=== PATIENT | female | born 1990 | race Caucasian/White ===

== ENCOUNTER 2022-10-15 18:48 | Emergency (ER) | payer OTHER ==
[~2022-10-15] VITALS: Ht 165.1 cm; Wt 63.5 kg
[2022-10-15] MEDS ORDERED: CEPH500 PO (19:11)
== END 2022-10-15 19:19 | disposition home or self-care (01) ==
LOC: ER 18:48
DX: L03.012 Cellulitis of left finger (principal)
CPT/HCPCS: A9270

== ENCOUNTER 2024-05-14 03:51 | Emergency (ER) | payer OTHER ==
[~2024-05-14] VITALS: Ht 167.6 cm; Wt 70.3 kg
[~2024-05-14 03:51] MED LIST: CEPH500 PO
[2024-05-14] MEDS ORDERED: Methyl Salicylate/Menth/Camph 57 GM TUBE TOP ONE (06:40)
[2024-05-14] MEDS ORDERED: Acetaminophen 500 MG Tab PO ONE (06:40)
[2024-05-14] MEDS ORDERED: Ketorolac Tromethamine 30mg Vial IM ONE (06:40)
[2024-05-14] MEDS ORDERED: Methocarbamol 500 MG Tab PO ONE (06:40)
[2024-05-14] MEDS ORDERED: Robaxin750 MG PO ×2 (07:05→07:24)
[2024-05-14] MEDS ORDERED: ARIPIPRAZOLE2 M1 PO (07:08)
[2024-05-14] MEDS ORDERED: FAMO20 PO (07:09)
[2024-05-14 07:18] VITALS: BP 115/75
== END 2024-05-14 07:29 | disposition home or self-care (01) ==
LOC: ER 03:51
DX: S29.012A Strain of muscle and tendon of back wall of thorax, initial encounter (principal); K25.9 Gastric ulcer, unspecified as acute or chronic, without hemorrhage or perforation; F31.9 Bipolar disorder, unspecified; F17.210 Nicotine dependence, cigarettes, uncomplicated; X58.XXXA Exposure to other specified factors, initial encounter; Z79.899 Other long term (current) drug therapy; Z88.5 Allergy status to narcotic agent; Z91.048 Other nonmedicinal substance allergy status
CPT/HCPCS: 73030; 96372; 99283-25; A9270; J1885

== ENCOUNTER 2024-08-26 09:26 | Emergency (ER) | payer OTHER ==
[~2024-08-26] VITALS: Ht 165.1 cm; Wt 70.3 kg
[~2024-08-26 09:26] MED LIST changes: +ARIPIPRAZOLE2 M1 PO; +FAMO20 PO; +Robaxin750 MG PO
[2024-08-26 09:46] VITALS: BP 156/64
[2024-08-26 10:19] LABS: Source, Urine Clean Catch
[2024-08-26 10:31] LABS: Appearance, Urine Clear (Clear); Bilirubin, Urine Neg (Neg); Blood, Urine Neg (Neg); Color, Urine Yellow (P-Yellow); Glucose Qualitative, Urine Neg (Neg); Ketones, Urine Neg (Neg); Leukocyte Esterase, Urine 3+ (Neg); Nitrite, Urine Pos (Neg); Protein, Urine 2+ (Neg); Urobilinogen, Urine 1+ (Normal)
[2024-08-26 12:03] LABS: Bacteria Mod /hpf; Red Blood Cells, Urine 0-2 /hpf (0-2); Squamous Epithelial Cells Many /hpf (Few)
[2024-08-26] MEDS ORDERED: CEFD300 PO ×2 (12:09→12:13)
== END 2024-08-26 12:12 | disposition home or self-care (01) ==
LOC: ER 09:26
PROVIDERS: Physician Assistant
DX: S60.512A Abrasion of left hand, initial encounter (principal); N39.0 Urinary tract infection, site not specified; Z88.8 Allergy status to other drugs, medicaments and biological substances; Z88.5 Allergy status to narcotic agent; Z88.0 Allergy status to penicillin; Z91.040 Latex allergy status; Z79.899 Other long term (current) drug therapy; F17.210 Nicotine dependence, cigarettes, uncomplicated; X58.XXXA Exposure to other specified factors, initial encounter
CPT/HCPCS: 81001; 81025; 87077; 87086; 87186; 99283

== ENCOUNTER 2024-12-19 02:54 | Emergency (ER) | payer OTHER ==
[~2024-12-19] VITALS: Ht 167.6 cm; Wt 74.8 kg
[~2024-12-19 02:54] MED LIST changes: +CEFD300 PO
[2024-12-19 03:41] LABS: Source, Urine Clean Catch
[2024-12-19 03:48] LABS: Bilirubin, Urine Neg (Neg); Blood, Urine Neg (Neg); Glucose Qualitative, Urine Neg (Neg); Ketones, Urine Neg (Neg); Leukocyte Esterase, Urine 1+ (Neg); Nitrite, Urine Neg (Neg); Protein, Urine Neg (Neg); Urobilinogen, Urine NORM (Normal)
[2024-12-19 03:55] LABS: Appearance, Urine Clear (Clear); Color, Urine Yellow (P-Yellow)
[2024-12-19 03:56] LABS: Amorphous Light (0-Heavy); Bacteria Few /hpf; Red Blood Cells, Urine Not Seen /hpf (0-2); Squamous Epithelial Cells Few /hpf (Few)
[2024-12-19] MEDS ORDERED: Cephalexin Monohydrate 500 MG Cap PO ONE (04:10)
[2024-12-19] MEDS ORDERED: CEPH500 PO (04:12)
[2024-12-19] MEDS ORDERED: ONDA4ODT MM (04:14)
[2024-12-19 04:27] VITALS: BP 120/67
== END 2024-12-19 04:29 | disposition home or self-care (01) ==
LOC: ER 02:54
PROVIDERS: Student in an Organized Health Care Education/Training Program
DX: N30.00 Acute cystitis without hematuria (principal); F17.210 Nicotine dependence, cigarettes, uncomplicated; Z79.899 Other long term (current) drug therapy; Z88.5 Allergy status to narcotic agent; Z88.0 Allergy status to penicillin; Z91.040 Latex allergy status; Z88.8 Allergy status to other drugs, medicaments and biological substances; Z91.048 Other nonmedicinal substance allergy status
CPT/HCPCS: 81001; 81025; A9270

== ENCOUNTER 2024-12-27 22:33 | Emergency (ER) | payer OTHER ==
[~2024-12-27] VITALS: Ht 167.6 cm; Wt 74.8 kg
[~2024-12-27 22:33] MED LIST changes: +ONDA4ODT MM
[2024-12-27 22:45] VITALS: BP 169/90
[2024-12-27 23:14] LABS: Source, Urine Clean Catch
[2024-12-27] MEDS ORDERED: Azithromycin 250 MG Tab PO ONE (23:15)
[2024-12-27] MEDS ORDERED: CefTRIAXone 1000 MG Vial IM ONE (23:15)
[2024-12-27 23:18] LABS: Appearance, Urine Clear (Clear); Bilirubin, Urine Neg (Neg); Blood, Urine 1+ (Neg); Color, Urine Yellow (P-Yellow); Glucose Qualitative, Urine Neg (Neg); Ketones, Urine 1+ (Neg); Leukocyte Esterase, Urine 1+ (Neg); Nitrite, Urine Neg (Neg); Protein, Urine Neg (Neg); Urobilinogen, Urine NORM (Normal)
[2024-12-27 23:24] LABS: Bacteria Few /hpf; Red Blood Cells, Urine 0-2 /hpf (0-2); Squamous Epithelial Cells Mod /hpf (Few)
[2024-12-27] MEDS ORDERED: CefTRIAXone 500 MG Vial IM ONE (23:25)
== END 2024-12-27 23:58 | disposition left against medical advice (07) ==
LOC: ER 22:33
PROVIDERS: Student in an Organized Health Care Education/Training Program
DX: T78.40XA Allergy, unspecified, initial encounter (principal); Z20.2 Contact with and (suspected) exposure to infections with a predominantly sexual mode of transmission; F17.210 Nicotine dependence, cigarettes, uncomplicated; Z88.5 Allergy status to narcotic agent; Z88.0 Allergy status to penicillin; Z88.1 Allergy status to other antibiotic agents; Z88.8 Allergy status to other drugs, medicaments and biological substances; Z91.040 Latex allergy status; Z91.048 Other nonmedicinal substance allergy status; Z79.899 Other long term (current) drug therapy
CPT/HCPCS: 81001; 81025; A9270; J0696

== ENCOUNTER 2024-12-31 16:18 | Emergency (ER) | payer OTHER ==
[~2024-12-31] VITALS: Ht 167.6 cm; Wt 74.8 kg
[2024-12-31 16:52] VITALS: BP 143/91
[2024-12-31 17:21] LABS: Source, Urine Clean Catch
[2024-12-31 17:38] LABS: Appearance, Urine Clear (Clear); Bilirubin, Urine Neg (Neg); Blood, Urine Neg (Neg); Color, Urine Yellow (P-Yellow); Glucose Qualitative, Urine Neg (Neg); Ketones, Urine Neg (Neg); Leukocyte Esterase, Urine Neg (Neg); Nitrite, Urine Neg (Neg); Protein, Urine Neg (Neg); Urobilinogen, Urine NORM (Normal)
[2024-12-31 19:48] LABS: Chlamydia Trachomatis Urine NOT DETECTED (NOT DETECT); Neisseria Gonorrhoea Urine NOT DETECTED (NOT DETECT)
== END 2024-12-31 18:43 | disposition home or self-care (01) ==
LOC: ER 16:18
PROVIDERS: Student in an Organized Health Care Education/Training Program
DX: R10.9 Unspecified abdominal pain (principal); F17.210 Nicotine dependence, cigarettes, uncomplicated; Z79.899 Other long term (current) drug therapy; Z79.2 Long term (current) use of antibiotics; Z88.0 Allergy status to penicillin; Z88.5 Allergy status to narcotic agent; Z91.040 Latex allergy status; Z88.1 Allergy status to other antibiotic agents; Z88.8 Allergy status to other drugs, medicaments and biological substances
CPT/HCPCS: 76770; 81003; 87491; 87591; 99284-25

== ENCOUNTER 2025-01-22 05:12 | Emergency (ER) | payer OTHER ==
[~2025-01-22] VITALS: Ht 167.6 cm; Wt 74.8 kg
[2025-01-22 05:26] VITALS: BP 131/91
[2025-01-22] MEDS ORDERED: LAMOTRIGINE100 M1 PO ×2 (06:27→06:50)
[2025-01-22] MEDS ORDERED: ARIPIPRAZOLE2 M1 PO (06:50)
[2025-01-22] MEDS ORDERED: ARIPiprazole 10 MG Tab PO ONE (06:50)
[2025-01-22] MEDS ORDERED: LamoTRIgine 25 MG Tab PO ONE (06:50)
== END 2025-01-22 07:05 | disposition home or self-care (01) ==
LOC: ER 05:12
DX: Z76.0 Encounter for issue of repeat prescription (principal); F17.210 Nicotine dependence, cigarettes, uncomplicated; Z88.8 Allergy status to other drugs, medicaments and biological substances; Z88.5 Allergy status to narcotic agent; Z88.1 Allergy status to other antibiotic agents; Z79.899 Other long term (current) drug therapy
CPT/HCPCS: 99283; A9270

== ENCOUNTER 2025-01-22 16:05 | Emergency (ER) | payer OTHER ==
[~2025-01-22] VITALS: Ht 167.6 cm; Wt 72.6 kg
[~2025-01-22 16:05] MED LIST changes: +LAMOTRIGINE100 M1 PO
[2025-01-22 16:49] VITALS: BP 124/83
== END 2025-01-22 17:46 | disposition home or self-care (01) ==
LOC: ER 16:05
DX: F22 Delusional disorders (principal); F17.210 Nicotine dependence, cigarettes, uncomplicated; Z88.5 Allergy status to narcotic agent; Z88.0 Allergy status to penicillin; Z88.1 Allergy status to other antibiotic agents; Z88.8 Allergy status to other drugs, medicaments and biological substances; Z79.899 Other long term (current) drug therapy
CPT/HCPCS: 99282

== ENCOUNTER 2025-01-27 04:08 | Emergency (ER) | payer OTHER ==
[~2025-01-27] VITALS: Ht 167.6 cm; Wt 70.3 kg
[2025-01-27 04:15] VITALS: BP 151/96
[2025-01-27] MEDS ORDERED: LamoTRIgine 25 MG Tab PO ONE ×2 (04:50→05:20)
== END 2025-01-27 05:20 | disposition home or self-care (01) ==
LOC: ER 04:08
DX: R45.851 Suicidal ideations (principal); F32.A Depression, unspecified; F41.9 Anxiety disorder, unspecified; F17.210 Nicotine dependence, cigarettes, uncomplicated; Z91.148 Patient's other noncompliance with medication regimen for other reason; Z88.5 Allergy status to narcotic agent; Z88.1 Allergy status to other antibiotic agents; Z88.0 Allergy status to penicillin; Z91.040 Latex allergy status; Z88.8 Allergy status to other drugs, medicaments and biological substances; Z79.1 Long term (current) use of non-steroidal anti-inflammatories (NSAID); Z79.899 Other long term (current) drug therapy
CPT/HCPCS: 93005; 93010; 99284-25; A9270

== ENCOUNTER 2025-02-25 00:20 | Emergency (ER) | payer OTHER ==
[~2025-02-25] VITALS: Ht 167.6 cm; Wt 72.6 kg
[2025-02-25 00:44] VITALS: BP 140/90
[2025-02-25 03:27] LABS: Source, Urine Clean Catch
[2025-02-25] MEDS ORDERED: Clindamycin HCl 150 MG Cap PO ONE (03:35)
[2025-02-25] MEDS ORDERED: Diclofenac Sodium 100 GM TUBE TOP ONE (03:35)
[2025-02-25 03:37] LABS: Appearance, Urine Hazy (Clear); Bilirubin, Urine Neg (Neg); Blood, Urine Neg (Neg); Color, Urine Yellow (P-Yellow); Glucose Qualitative, Urine Neg (Neg); Ketones, Urine Neg (Neg); Leukocyte Esterase, Urine Neg (Neg); Nitrite, Urine Neg (Neg); Protein, Urine Neg (Neg); Urobilinogen, Urine NORM (Normal); pH, Urine 6.5 (5.0-8.0)
[2025-02-25] MEDS ORDERED: Voltaren100 GM TOP (03:38)
[2025-02-25] MEDS ORDERED: Cleocin HCl150 MG PO (03:38)
[2025-02-25 03:43] LABS: Red Blood Cells, Urine 0-2 /hpf (0-2)
[2025-02-25 03:44] LABS: Amorphous Mod (0-Heavy); Bacteria Few /hpf; Squamous Epithelial Cells Few /hpf (Few)
== END 2025-02-25 03:54 | disposition home or self-care (01) ==
LOC: ER 00:20
PROVIDERS: Emergency Medicine
DX: K04.7 Periapical abscess without sinus (principal); M43.6 Torticollis; R82.71 Bacteriuria; F17.210 Nicotine dependence, cigarettes, uncomplicated; L30.9 Dermatitis, unspecified; Z88.5 Allergy status to narcotic agent; Z88.0 Allergy status to penicillin; Z91.040 Latex allergy status; Z79.899 Other long term (current) drug therapy; Z88.8 Allergy status to other drugs, medicaments and biological substances; Z59.89 Other problems related to housing and economic circumstances
CPT/HCPCS: 81001; 87077; 87086; 87186; 99283; A9270

== ENCOUNTER 2025-03-06 01:09 | Emergency (ER) | payer OTHER ==
[~2025-03-06] VITALS: Ht 167.6 cm; Wt 70.3 kg
[~2025-03-06 01:09] MED LIST changes: +Cleocin HCl150 MG PO; +Voltaren100 GM TOP
[2025-03-06 01:43] LABS: BASOPHILS ABSOLUTE AUTO 0.03 K/mm3 (0.00-0.23); BASOPHILS PERCENT AUTO 0 % (0-2); EOSINOPHILS ABSOLUTE AUTO 0.08 K/mm3 (0.00-0.68); EOSINOPHILS PERCENT AUTO 1 % (0-6); Hematocrit 41.5 % (33.0-51.0); Hemoglobin 14.5 g/dL (11.5-16.0); IMMATURE GRAN ABSOLUTE AUTO 0.01 K/mm3 (0.00-0.10); IMMATURE GRAN PERCENT AUTO 0 % (0-1); LYMPHOCYTES ABSOLUTE AUTO 2.48 K/mm3 (0.84-5.20); LYMPHOCYTES PERCENT AUTO 37 % (21-46); MONOCYTES ABSOLUTE AUTO 0.37 K/mm3 (0.16-1.47); MONOCYTES PERCENT AUTO 6 % (4-13); Mean Corpuscular HGB 30.7 pg (26.0-34.0); Mean Corpuscular HGB Conc 34.9 g/dL (31.5-36.5); Mean Corpuscular Volume 88 fL (80-100); NEUTROPHILS ABSOLUTE AUTO 3.73 K/mm3 (1.96-9.15); NEUTROPHILS PERCENT AUTO 56 % (41-73); Platelet Count 180 K/mm3 (150-400); RDW Coefficient Variation 11.5 % (11.7-14.2); Red Blood Cell Count 4.72 M/mm3 (3.80-5.20)
[2025-03-06 02:02] LABS: Albumin, Blood 4.2 g/dL (3.4-5.0); Albumin/Globulin Ratio 1.3 (0.8-1.8); Bilirubin, Total 0.6 mg/dL (0.1-1.0); Bun/Creatinine Ratio 18.4 (12.0-20.0); Calcium, Blood 9.1 mg/dL (8.5-10.1); Creatinine, Blood 0.76 mg/dL (0.40-1.00); Globulin, Blood 3.3 g/dL (2.2-4.0); Potassium, Blood 3.4 mmol/L (3.5-5.5); Total Protein, Blood 7.5 g/dL (6.4-8.2)
[2025-03-06] MEDS ORDERED: Ciprofloxacin 500 MG Tab PO ONE (03:10)
[2025-03-06] MEDS ORDERED: Acetaminophen 500 MG Tab PO ONE (03:10)
[2025-03-06] MEDS ORDERED: CIPR500 PO ×2 (03:11→03:32)
[2025-03-06 03:30] VITALS: BP 124/83
== END 2025-03-06 03:30 | disposition home or self-care (01) ==
LOC: ER 01:09
PROVIDERS: Emergency Medicine
DX: N39.0 Urinary tract infection, site not specified (principal); Z88.0 Allergy status to penicillin; Z88.1 Allergy status to other antibiotic agents; Z91.040 Latex allergy status; Z79.899 Other long term (current) drug therapy; Z79.2 Long term (current) use of antibiotics; F17.210 Nicotine dependence, cigarettes, uncomplicated
CPT/HCPCS: 80053; 83690; 85025; 99284; A9270

== ENCOUNTER 2025-03-15 19:27 | Emergency (ER) | payer OTHER ==
[~2025-03-15] VITALS: Ht 167.6 cm; Wt 68.0 kg
[~2025-03-15 19:27] MED LIST changes: +CIPR500 PO
[2025-03-15 19:32] VITALS: BP 154/76
[2025-03-15] MEDS ORDERED: IBUP600 PO (20:31)
== END 2025-03-15 20:48 | disposition home or self-care (01) ==
LOC: ER 19:27
DX: S62.512A Displaced fracture of proximal phalanx of left thumb, initial encounter for closed fracture (principal); F17.210 Nicotine dependence, cigarettes, uncomplicated; Y04.0XXA Assault by unarmed brawl or fight, initial encounter; Z91.09 Other allergy status, other than to drugs and biological substances; Z88.0 Allergy status to penicillin; Z88.5 Allergy status to narcotic agent; Z88.1 Allergy status to other antibiotic agents; Z88.8 Allergy status to other drugs, medicaments and biological substances; Z91.040 Latex allergy status; Z79.899 Other long term (current) drug therapy
CPT/HCPCS: 29125; 73130; 99283-25

== ENCOUNTER 2025-03-28 18:14 | Emergency (ER) | payer OTHER ==
[~2025-03-28] VITALS: Ht 167.6 cm; Wt 68.0 kg
[~2025-03-28 18:14] MED LIST changes: +IBUP600 PO
[2025-03-28 18:33] VITALS: BP 135/96
[2025-03-28] MEDS ORDERED: NS 1,000 ML IV SCH (18:45)
[2025-03-28 18:58] LABS: BASOPHILS ABSOLUTE AUTO 0.03 K/mm3 (0.00-0.23); BASOPHILS PERCENT AUTO 1 % (0-2); EOSINOPHILS ABSOLUTE AUTO 0.04 K/mm3 (0.00-0.68); EOSINOPHILS PERCENT AUTO 1 % (0-6); Hematocrit 44.9 % (33.0-51.0); Hemoglobin 15.2 g/dL (11.5-16.0); IMMATURE GRAN ABSOLUTE AUTO 0.01 K/mm3 (0.00-0.10); IMMATURE GRAN PERCENT AUTO 0 % (0-1); LYMPHOCYTES ABSOLUTE AUTO 1.74 K/mm3 (0.84-5.20); LYMPHOCYTES PERCENT AUTO 31 % (21-46); MONOCYTES PERCENT AUTO 5 % (4-13); Mean Corpuscular HGB 30.7 pg (26.0-34.0); Mean Corpuscular HGB Conc 33.9 g/dL (31.5-36.5); Mean Corpuscular Volume 91 fL (80-100); Mean Platelet Volume 12.2 fL (9.1-12.4); NEUTROPHILS ABSOLUTE AUTO 3.57 K/mm3 (1.96-9.15); NEUTROPHILS PERCENT AUTO 63 % (41-73); Platelet Count 177 K/mm3 (150-400); RDW Coefficient Variation 11.7 % (11.7-14.2); RDW Standard Deviation 38.8 fL (35.1-46.3); Red Blood Cell Count 4.95 M/mm3 (3.80-5.20); White Blood Cell Count 5.69 K/mm3 (4.00-11.30)
[2025-03-28 19:28] LABS: Albumin, Blood 3.9 g/dL (3.4-5.0); Albumin/Globulin Ratio 1.1 (0.8-1.8); Bilirubin, Total 0.4 mg/dL (0.1-1.0); Bun/Creatinine Ratio 21.6 (12.0-20.0); Calcium, Blood 9.2 mg/dL (8.5-10.1); Creatinine, Blood 0.74 mg/dL (0.40-1.00); Globulin, Blood 3.6 g/dL (2.2-4.0); Potassium, Blood 4.5 mmol/L (3.5-5.5); Total Protein, Blood 7.5 g/dL (6.4-8.2)
== END 2025-03-28 19:22 | disposition home or self-care (01) ==
LOC: ER 18:14
PROVIDERS: Student in an Organized Health Care Education/Training Program
DX: R19.5 Other fecal abnormalities (principal); R10.31 Right lower quadrant pain; F17.210 Nicotine dependence, cigarettes, uncomplicated; Z53.29 Procedure and treatment not carried out because of patient's decision for other reasons; Z87.11 Personal history of peptic ulcer disease; Z91.048 Other nonmedicinal substance allergy status; Z88.5 Allergy status to narcotic agent; Z88.0 Allergy status to penicillin; Z88.1 Allergy status to other antibiotic agents; Z91.040 Latex allergy status; Z88.8 Allergy status to other drugs, medicaments and biological substances; Z79.899 Other long term (current) drug therapy
CPT/HCPCS: 80053; 85025; 99283

== ENCOUNTER 2025-06-05 17:17 | Emergency (ER) | payer OTHER ==
[~2025-06-05] VITALS: Ht 167.6 cm; Wt 70.3 kg
[2025-06-05 17:45] VITALS: BP 136/99
== END 2025-06-05 18:24 | disposition home or self-care (01) ==
LOC: ER 17:17
DX: M25.511 Pain in right shoulder (principal); F17.210 Nicotine dependence, cigarettes, uncomplicated; Z91.048 Other nonmedicinal substance allergy status; Z88.5 Allergy status to narcotic agent; Z88.0 Allergy status to penicillin; Z88.1 Allergy status to other antibiotic agents; Z91.040 Latex allergy status; Z88.8 Allergy status to other drugs, medicaments and biological substances; Z79.899 Other long term (current) drug therapy
CPT/HCPCS: 93005; 93010; 99282-25

== ENCOUNTER 2025-07-31 03:54 | Emergency (ER) | payer OTHER ==
[~2025-07-31] VITALS: Ht 167.6 cm; Wt 68.0 kg
[2025-07-31 04:07] VITALS: BP 124/76
[2025-07-31] MEDS ORDERED: Lidocaine HCl 4% Cream 5 GM TOP ONE (04:25)
[2025-07-31] MEDS ORDERED: BACTRIM DS TAB1 EAC1 PO (05:28)
[2025-07-31] MEDS ORDERED: Trimethoprim/Sulfamethoxazole DS Tab PO ONE (05:30)
== END 2025-07-31 05:35 | disposition home or self-care (01) ==
LOC: ER 03:54
DX: L02.611 Cutaneous abscess of right foot (principal); L03.115 Cellulitis of right lower limb; Z88.5 Allergy status to narcotic agent; Z88.0 Allergy status to penicillin; Z91.040 Latex allergy status; Z79.899 Other long term (current) drug therapy; Z79.2 Long term (current) use of antibiotics; F17.210 Nicotine dependence, cigarettes, uncomplicated
CPT/HCPCS: 73610; A9270

== ENCOUNTER 2025-08-11 04:32 | Emergency (ER) | payer OTHER ==
[~2025-08-11] VITALS: Ht 160 cm; Wt 63.5 kg
[~2025-08-11 04:32] MED LIST changes: +ALLER-CORT16.9 ML; +BACTRIM DS TAB1 EAC1 PO
[2025-08-11 04:41] VITALS: BP 149/96
== END 2025-08-11 04:49 | disposition home or self-care (01) ==
LOC: ER 04:32
DX: R51.9 Headache, unspecified (principal); F17.210 Nicotine dependence, cigarettes, uncomplicated; Z79.899 Other long term (current) drug therapy; Z88.5 Allergy status to narcotic agent; Z88.0 Allergy status to penicillin; Z91.040 Latex allergy status; Z88.8 Allergy status to other drugs, medicaments and biological substances
CPT/HCPCS: 99283

== ENCOUNTER 2025-08-28 20:03 | Emergency (ER) | payer OTHER ==
[~2025-08-28] VITALS: Ht 167.6 cm; Wt 68.0 kg
[2025-08-28 20:34] LABS: Source, Urine Clean Catch
[2025-08-28 20:36] LABS: Bilirubin, Urine Neg (Neg); Glucose Qualitative, Urine Neg (Neg); Ketones, Urine Neg (Neg); Leukocyte Esterase, Urine 2+ (Neg); Protein, Urine Neg (Neg); Specific Gravity, Urine 1.015 (1.003-1.022); Urobilinogen, Urine NORM (Normal)
[2025-08-28 20:46] LABS: Color, Urine Yellow (P-Yellow)
[2025-08-28] MEDS ORDERED: HYDROXYZINE PAM25 MG PO (20:47)
[2025-08-28] MEDS ORDERED: FLUOXETINE HCL60 MG PO (20:47)
[2025-08-28] MEDS ORDERED: OLANZAPINE1024 PO (20:47)
[2025-08-28 20:50] LABS: Red Blood Cells, Urine Not Seen /hpf (0-2)
[2025-08-28] MEDS ORDERED: NS 1,000 ML IV SCH (20:50)
[2025-08-28] MEDS ORDERED: Ondansetron HCl 2 MG / ML 2ML Vial IV ONE (20:50)
[2025-08-28] MEDS ORDERED: HYDROmorphone HCl/Pf 1MG SYR IV ONE (20:50)
[2025-08-28 21:36] LABS: BASOPHILS ABSOLUTE AUTO 0.02 K/mm3 (0.00-0.23); BASOPHILS PERCENT AUTO 0 % (0-2); EOSINOPHILS ABSOLUTE AUTO 0.11 K/mm3 (0.00-0.68); EOSINOPHILS PERCENT AUTO 2 % (0-6); Hematocrit 39.0 % (33.0-51.0); Hemoglobin 12.7 g/dL (11.5-16.0); IMMATURE GRAN ABSOLUTE AUTO 0.02 K/mm3 (0.00-0.10); IMMATURE GRAN PERCENT AUTO 0 % (0-1); LYMPHOCYTES ABSOLUTE AUTO 2.03 K/mm3 (0.84-5.20); LYMPHOCYTES PERCENT AUTO 32 % (21-46); MONOCYTES ABSOLUTE AUTO 0.37 K/mm3 (0.16-1.47); MONOCYTES PERCENT AUTO 6 % (4-13); Mean Corpuscular HGB Conc 32.6 g/dL (31.5-36.5); Mean Corpuscular Volume 93 fL (80-100); NEUTROPHILS ABSOLUTE AUTO 3.89 K/mm3 (1.96-9.15); NEUTROPHILS PERCENT AUTO 61 % (41-73); NRBC ABSOLUTE 0.00 K/mm3 (0.00-0.02); NRBC Auto 0.0 /100 WBC (0.0-0.2); Platelet Count 198 K/mm3 (150-400); RDW Coefficient Variation 11.9 % (11.7-14.2); RDW Standard Deviation 40.6 fL (35.1-46.3)
[2025-08-28 21:57] LABS: Alanine Aminotransfer (ALT/SGP 41.0 U/L (12-78); Albumin, Blood 3.6 g/dL (3.4-5.0); Albumin/Globulin Ratio 1.0 (0.8-1.8); Anion Gap 8.0 mmol/L (3-11); Aspartate Aminotrans (AST/SGOT 21.0 U/L (12-37); Bilirubin, Total 0.2 mg/dL (0.1-1.0); Blood Urea Nitrogen 13.0 mg/dL (8-24); CO2, Blood 29.0 mmol/L (21-32); Calcium, Blood 8.7 mg/dL (8.5-10.1); Chloride, Blood 105.0 mmol/L (98-108); Creatinine, Blood 0.7 mg/dL (0.40-1.00); Globulin, Blood 3.5 g/dL (2.2-4.0); Glucose, Blood 118.0 mg/dL (70-99); Potassium, Blood 3.7 mmol/L (3.5-5.5); Sodium, Blood 138.0 mmol/L (136-145); Total Protein, Blood 7.1 g/dL (6.4-8.2)
[2025-08-28 22:06] VITALS: BP 112/89
[2025-08-29] MEDS ORDERED: ALMACONE SUSPE355 ML PO (01:10)
[2025-08-29] MEDS ORDERED: ONDA4 PO (01:10)
[2025-08-31] MEDS ORDERED: ALMACONE SUSPE355 ML PO (15:07)
[2025-08-31] MEDS ORDERED: ONDA4 PO (15:07)
== END 2025-08-29 02:00 | disposition home or self-care (01) ==
LOC: ER 20:03
PROVIDERS: Student in an Organized Health Care Education/Training Program
DX: R10.A3 Flank pain, bilateral (principal); R10.33 Periumbilical pain; F17.200 Nicotine dependence, unspecified, uncomplicated; Z79.899 Other long term (current) drug therapy; Z88.1 Allergy status to other antibiotic agents; Z88.0 Allergy status to penicillin; Z91.040 Latex allergy status
CPT/HCPCS: 74176; 80053; 81001; 83605; 83690; 84484; 84703; 85025; 87086; 93005; 93010; 96374; 96375; 99284-25; J1171; J2405; J7030

== ENCOUNTER 2025-09-28 18:34 | Emergency (ER) | payer OTHER ==
[~2025-09-28] VITALS: Ht 167.6 cm; Wt 70.3 kg
[~2025-09-28 18:34] MED LIST changes: +ALMACONE SUSPE355 ML PO; +FLUOXETINE HCL60 MG PO; +HYDROXYZINE PAM25 MG PO; +OLANZAPINE1024 PO; +ONDA4 PO
[2025-09-28] MEDS ORDERED: NS 500 ML IV SCH (19:45)
[2025-09-28 19:47] LABS: BASOPHILS ABSOLUTE AUTO 0.03 K/mm3 (0.00-0.23); BASOPHILS PERCENT AUTO 1 % (0-2); EOSINOPHILS ABSOLUTE AUTO 0.09 K/mm3 (0.00-0.68); EOSINOPHILS PERCENT AUTO 2 % (0-6); Hematocrit 43.1 % (33.0-51.0); Hemoglobin 14.5 g/dL (11.5-16.0); IMMATURE GRAN ABSOLUTE AUTO 0.03 K/mm3 (0.00-0.10); IMMATURE GRAN PERCENT AUTO 1 % (0-1); LYMPHOCYTES ABSOLUTE AUTO 1.85 K/mm3 (0.84-5.20); LYMPHOCYTES PERCENT AUTO 32 % (21-46); MONOCYTES ABSOLUTE AUTO 0.30 K/mm3 (0.16-1.47); MONOCYTES PERCENT AUTO 5 % (4-13); Mean Corpuscular HGB Conc 33.6 g/dL (31.5-36.5); Mean Corpuscular Volume 90 fL (80-100); NEUTROPHILS ABSOLUTE AUTO 3.48 K/mm3 (1.96-9.15); NEUTROPHILS PERCENT AUTO 60 % (41-73); NRBC ABSOLUTE 0.00 K/mm3 (0.00-0.02); NRBC Auto 0.0 /100 WBC (0.0-0.2); RDW Coefficient Variation 11.9 % (11.7-14.2); RDW Standard Deviation 39.4 fL (35.1-46.3)
[2025-09-28 19:54] LABS: Alanine Aminotransfer (ALT/SGP 132.0 U/L (12-78); Albumin, Blood 3.7 g/dL (3.4-5.0); Albumin/Globulin Ratio 1.0 (0.8-1.8); Anion Gap 7.0 mmol/L (3-11); Aspartate Aminotrans (AST/SGOT 98.0 U/L (12-37); Bilirubin, Total 0.4 mg/dL (0.1-1.0); Blood Urea Nitrogen 13.0 mg/dL (8-24); CO2, Blood 29.0 mmol/L (21-32); Calcium, Blood 9.0 mg/dL (8.5-10.1); Chloride, Blood 104.0 mmol/L (98-108); Creatinine, Blood 0.69 mg/dL (0.40-1.00); Globulin, Blood 3.8 g/dL (2.2-4.0); Glucose, Blood 118.0 mg/dL (70-99); Potassium, Blood 4.8 mmol/L (3.5-5.5); Sodium, Blood 135.0 mmol/L (136-145); Total Protein, Blood 7.5 g/dL (6.4-8.2)
[2025-09-28 20:13] LABS: Platelet Count 188 K/mm3 (150-400)
[2025-09-28] MEDS ORDERED: Ondansetron HCl 2 MG / ML 2ML Vial IV ONE (20:15)
[2025-09-28] MEDS ORDERED: HYDROmorphone HCl/Pf 1MG SYR IV ONE ×2 (20:25→21:40)
[2025-09-28 22:16] LABS: Source, Urine Clean Catch
[2025-09-28 22:30] VITALS: BP 113/70
[2025-09-28 22:33] LABS: Bilirubin, Urine Neg (Neg); Color, Urine Yellow (P-Yellow); Glucose Qualitative, Urine Neg (Neg); Ketones, Urine Neg (Neg); Leukocyte Esterase, Urine 1+ (Neg); Protein, Urine 1+ (Neg); Specific Gravity, Urine 1.015 (1.003-1.022); Urobilinogen, Urine NORM (Normal)
[2025-09-28 23:03] LABS: Red Blood Cells, Urine 0-2 /hpf (0-2); White Blood Cells, Urine 0-2 /hpf (0-5)
[2025-09-28] MEDS ORDERED: ONDA4ODT MM (23:14)
[2025-09-28] MEDS ORDERED: MIRALAX17 GM PO (23:14)
[2025-09-28] MEDS ORDERED: DICY20 PO (23:14)
== END 2025-09-28 23:55 | disposition home or self-care (01) ==
LOC: ER 18:34
PROVIDERS: Student in an Organized Health Care Education/Training Program
DX: K59.00 Constipation, unspecified (principal); F17.210 Nicotine dependence, cigarettes, uncomplicated; Z88.5 Allergy status to narcotic agent; Z88.0 Allergy status to penicillin; Z88.1 Allergy status to other antibiotic agents; Z91.040 Latex allergy status; Z79.899 Other long term (current) drug therapy
CPT/HCPCS: 74177; 80053; 81001; 83605; 84703; 85025; 86850; 86900; 86901; 87086; 93971; 96374-59; 96375; 96376; 99284-25; J1171; J1790; J2405; J7030; Q9967

== ENCOUNTER 2025-10-09 07:50 | Emergency (ER) | payer OTHER ==
[~2025-10-09] VITALS: Ht 167.6 cm; Wt 72.6 kg
[~2025-10-09 07:50] MED LIST changes: +DICY20 PO; +MIRALAX17 GM PO
[2025-10-09 09:42] LABS: Alanine Aminotransfer (ALT/SGP 125.0 U/L (12-78); Albumin, Blood 2.7 g/dL (3.4-5.0); Albumin/Globulin Ratio 1.0 (0.8-1.8); Anion Gap 9.0 mmol/L (3-11); Aspartate Aminotrans (AST/SGOT 73.0 U/L (12-37); Bilirubin, Total 0.4 mg/dL (0.1-1.0); Blood Urea Nitrogen 7.0 mg/dL (8-24); CO2, Blood 22.0 mmol/L (21-32); Calcium, Blood 7.1 mg/dL (8.5-10.1); Chloride, Blood 113.0 mmol/L (98-108); Creatinine, Blood 0.53 mg/dL (0.40-1.00); Globulin, Blood 2.7 g/dL (2.2-4.0); Glucose, Blood 78.0 mg/dL (70-99); Potassium, Blood 3.5 mmol/L (3.5-5.5); Sodium, Blood 140.0 mmol/L (136-145); Total Protein, Blood 5.4 g/dL (6.4-8.2)
[2025-10-09] MEDS ORDERED: Ketorolac Tromethamine 15mg Vial IV ONE (10:30)
[2025-10-09] MEDS ORDERED: Vancomycin (Pharmacy Consult) IV PRN (10:30)
[2025-10-09 11:26] LABS: BASOPHILS ABSOLUTE AUTO 0.02 K/mm3 (0.00-0.23); BASOPHILS PERCENT AUTO 0 % (0-2); EOSINOPHILS ABSOLUTE AUTO 0.10 K/mm3 (0.00-0.68); EOSINOPHILS PERCENT AUTO 2 % (0-6); Hematocrit 34.4 % (33.0-51.0); Hemoglobin 11.8 g/dL (11.5-16.0); IMMATURE GRAN ABSOLUTE AUTO 0.01 K/mm3 (0.00-0.10); IMMATURE GRAN PERCENT AUTO 0 % (0-1); LYMPHOCYTES ABSOLUTE AUTO 1.44 K/mm3 (0.84-5.20); LYMPHOCYTES PERCENT AUTO 23 % (21-46); MONOCYTES ABSOLUTE AUTO 0.48 K/mm3 (0.16-1.47); MONOCYTES PERCENT AUTO 8 % (4-13); Mean Corpuscular HGB Conc 34.3 g/dL (31.5-36.5); Mean Corpuscular Volume 89 fL (80-100); NEUTROPHILS ABSOLUTE AUTO 4.23 K/mm3 (1.96-9.15); NEUTROPHILS PERCENT AUTO 67 % (41-73); NRBC ABSOLUTE 0.00 K/mm3 (0.00-0.02); NRBC Auto 0.0 /100 WBC (0.0-0.2); Platelet Count 191 K/mm3 (150-400); RDW Coefficient Variation 11.9 % (11.7-14.2); RDW Standard Deviation 38.2 fL (35.1-46.3)
[2025-10-09] MEDS ORDERED: Trimethoprim/Sulfamethoxazole DS Tab PO ONE (11:50)
[2025-10-09] MEDS ORDERED: Bactrim Ds Tab1 EACH PO (12:23)
[2025-10-09 13:15] VITALS: BP 132/90
== END 2025-10-09 13:30 | disposition home or self-care (01) ==
LOC: ER 07:50
PROVIDERS: Physician Assistant
DX: L03.113 Cellulitis of right upper limb (principal); M79.89 Other specified soft tissue disorders; F17.210 Nicotine dependence, cigarettes, uncomplicated; Z79.899 Other long term (current) drug therapy; Z88.0 Allergy status to penicillin; Z88.5 Allergy status to narcotic agent; Z91.040 Latex allergy status; Z88.8 Allergy status to other drugs, medicaments and biological substances
CPT/HCPCS: 80053; 83605; 83880; 85025; 87040; 93970; 96374; 99284-25; A9270; J1885; J3373; J7040

== ENCOUNTER 2025-10-17 05:50 | Emergency (ER) | payer OTHER ==
[~2025-10-17] VITALS: Ht 167.6 cm; Wt 70.3 kg
[~2025-10-17 05:50] MED LIST changes: +Bactrim Ds Tab1 EACH PO
[2025-10-17 06:21] VITALS: BP 136/88
[2025-10-17] MEDS ORDERED: HYDHCL25 PO (06:31)
== END 2025-10-17 06:38 | disposition home or self-care (01) ==
LOC: ER 05:50
DX: T50.3X1A Poisoning by electrolytic, caloric and water-balance agents, accidental (unintentional), initial encounter (principal); L03.114 Cellulitis of left upper limb; L03.113 Cellulitis of right upper limb; Z76.0 Encounter for issue of repeat prescription; F17.210 Nicotine dependence, cigarettes, uncomplicated; Z88.5 Allergy status to narcotic agent; Z88.0 Allergy status to penicillin; Z88.1 Allergy status to other antibiotic agents; Z91.040 Latex allergy status; Z88.8 Allergy status to other drugs, medicaments and biological substances; Z91.09 Other allergy status, other than to drugs and biological substances; Z79.899 Other long term (current) drug therapy
CPT/HCPCS: 99282

== ENCOUNTER → 2025-10-23 | Outpatient (CLI) | payer OTHER ==
[~2025-10-23] MED LIST changes: +HYDHCL25 PO
== END ==
LOC: LAB 14:03 → LAB SHORT 14:03
DX: J02.9 Acute pharyngitis, unspecified (principal)
CPT/HCPCS: 87081

== ENCOUNTER 2025-11-02 04:17 | Emergency (ER) | payer OTHER ==
[~2025-11-02] VITALS: Ht 157.5 cm; Wt 61.2 kg
[2025-11-02] MEDS ORDERED: Ipratropium/Albuterol SulF 2.5-0.5MG/3 ML Amp INH ONE (06:15)
[2025-11-02 07:14] LABS: CORONAVIRUS COVID-19 AG Negative (NEGATIVE)
[2025-11-02] MEDS ORDERED: Dexamethasone Sod Phos 10 MG/ML 1ML VIAL PO ONE (07:30)
[2025-11-02] MEDS ORDERED: BENZ100A PO (07:37)
[2025-11-02] MEDS ORDERED: ALBU90OI INH (07:37)
[2025-11-02 07:45] VITALS: BP 147/83
== END 2025-11-02 07:50 | disposition home or self-care (01) ==
LOC: ER 04:17
PROVIDERS: Emergency Medicine
DX: J45.901 Unspecified asthma with (acute) exacerbation (principal); J02.9 Acute pharyngitis, unspecified; B09 Unspecified viral infection characterized by skin and mucous membrane lesions; F17.210 Nicotine dependence, cigarettes, uncomplicated; Z88.5 Allergy status to narcotic agent; Z88.0 Allergy status to penicillin; Z88.1 Allergy status to other antibiotic agents; Z91.040 Latex allergy status; Z88.8 Allergy status to other drugs, medicaments and biological substances; Z91.09 Other allergy status, other than to drugs and biological substances; Z79.899 Other long term (current) drug therapy
CPT/HCPCS: 71045; 87428-QW; 99283-25; J1100